=== PATIENT | male | born 1995 | race Caucasian/White ===

== ENCOUNTER 2023-08-22 17:28 | Emergency (ER) | payer OTHER ==
[~2023-08-22] VITALS: Ht 170.2 cm; Wt 50.0 kg
[2023-08-22] MEDS ORDERED: NEOMYCIN-BACITRACIN-POLYMYXIN 0.5 GM/PAK PAK TOP ONE (18:05)
[2023-08-22] MEDS ORDERED: Diph, Acellular Pertussis, Tet 0.5 ML/VIAL (Tdap) SDV IM ONE (18:05)
[2023-08-22] MEDS ORDERED: SULFAMETHOXAZOLE W/TRIMETHOPRI 1 COMBO TAB PO ONE (18:05)
[2023-08-22] MEDS ORDERED: POVIDONE IODINE 0.5 OZ/BTL TOP ONE (18:05)
[2023-08-22 18:19] VITALS: BP 11/70
== END 2023-08-22 18:34 | DRG 605 ==
LOC: ED 17:28
DX: S51.812A Laceration without foreign body of left forearm, initial encounter (principal); X78.8XXA Intentional self-harm by other sharp object, initial encounter; Y92.149 Unspecified place in prison as the place of occurrence of the external cause; F99 Mental disorder, not otherwise specified; Z91.52 Personal history of nonsuicidal self-harm